=== PATIENT | female | born 1960 | race African-American/Black ===

== ENCOUNTER 2020-09-21 09:12 | Outpatient (CLI) | payer OTHER ==
--- NOTE | 2020-09-21 11:55 | Ultrasound Report ---
ULTRASOUND SOFT TISSUE HEAD AND NECK HISTORY: Localized swelling, mass and lump in neck. Bilateral parotid area of swelling, left greater than right. Patient states this has gotten better with medications. TECHNIQUE: Grayscale ultrasound with color Doppler imaging. COMPARISON: None. FINDINGS: Targeted ultrasound was performed in both parotid and submandibular regions at the site of swelling per the patient. The images demonstrate no evidence for cyst, mass or adenopathy. The right parotid gland measures approximately 6.1 x 1.9 x 5.5 cm. The left parotid gland measures approximatel y 6.2 x 2.4 x 2.8 cm. No obvious parenchymal abnormality is appreciated. IMPRESSION: No abnormality identified. Signer Name: Thierno Howard Jr, MD Signed: 09/21/2020 11:50 AM Workstation Name: [id number]
== END 2020-09-21 09:13 | disposition home or self-care (01) ==
LOC: US 09:12
DX: R22.1 Localized swelling, mass and lump, neck (principal)
CPT/HCPCS: 76536